=== PATIENT | female | born 1980 | race Caucasian/White ===

== ENCOUNTER 2020-09-24 10:33 | Emergency (ER) | payer OTHER ==
[~2020-09-24] VITALS: Ht 154.9 cm; Wt 59.3 kg
[2020-09-24 12:49] LABS: BASO % 0.3 % (0.0-1.0); EOS # 0.1 10^3/uL (0.0-0.5); EOS % 0.9 % (0.0-3.0); HEMATOCRIT 39.4 % (36.0-47.0); HEMOGLOBIN 12.7 g/dl (12.0-15.5); LYMPH # 1.6 10^3/uL (1.5-5.0); LYMPH % 24.4 % (24.0-44.0); MEAN CORPUSCULAR HEMOGLOBIN 30.5 pg (27.0-33.0); MEAN CORPUSCULAR HGB CONC 32.2 g/dl (32.0-36.5); MEAN CORPUSCULAR VOLUME 94.7 fl (80.0-96.0); MONO # 0.3 10^3/uL (0.0-0.8); MONO % 5.4 % (2.0-8.0); NEUTROPHILS # 4.4 10^3/uL (1.5-8.5); NEUTROPHILS % 68.7 % (36.0-66.0); PLATELET COUNT, AUTOMATED 210 10^3/uL (150-450); RED BLOOD COUNT 4.16 10^6/uL (4.00-5.40); WHITE BLOOD COUNT 6.3 10^3/uL (4.0-10.0)
--- NOTE | 2020-09-24 13:20 | REP ---
INDICATION: nilat pelvic pain, hx of cysts COMPARISON: None. TECHNIQUE: Transabdominal pelvic ultrasound followed by transvaginal examination for better evaluation of the endometrium and adnexa with color Doppler evaluation of the ovaries. FINDINGS: Bladder is unremarkable and measures 6.9 x 4.3 x 2.1 cm. Normal anteverted uterus measures 9.8 x 5.2 x 7.0 cm. The endometrial complex measures 13 mm thickness. No discrete uterine or endometrial abnormalities are appreciated. Bilateral ovaries are normal in vascularity without evidence for torsion. Right ovary measures 5.2 x 2.6 x 3.8 cm and includes 2.6 x 2.6 x 2.0 cm septated likely physiologic cyst; R I = 0.48. Left ovary measures 3.7 x 1.5 x 2.6 cm; R I = 0.40. No pelvic fluid or adnexal mass lesion IMPRESSION: 1. Normal uterus and left ovary. 2. Septated cyst in the right ovary likely physiologic. <Electronically signed by Jm Myers > 09/24/20 [id number]
[2020-09-24 13:27] LABS: ALBUMIN 3.8 GM/DL (3.2-5.2); ALT/SGPT 23 U/L (12-78); BILIRUBIN,DIRECT < 0.1 MG/DL (0.0-0.2); BILIRUBIN,TOTAL 0.5 MG/DL (0.2-1.0); LIPASE 119 U/L (73-393); TOTAL PROTEIN 6.8 GM/DL (6.4-8.2)
[2020-09-24 13:42] VITALS: BP 115/64
== END 2020-09-24 13:43 | disposition home or self-care (01) ==
LOC: M ED 10:33
DX: N83.201 Unspecified ovarian cyst, right side (principal); E05.00 Thyrotoxicosis with diffuse goiter without thyrotoxic crisis or storm

== ENCOUNTER → 2020-10-29 | Outpatient (CLI) | payer OTHER | LOC: M WHC 11:06 | PROVIDERS: ATTEND Obstetrics & Gynecology | DX: N83.201 Unspecified ovarian cyst, right side (principal); Z53.8 Procedure and treatment not carried out for other reasons ==

== ENCOUNTER → 2020-11-12 | Outpatient (CLI) | payer OTHER ==
[2020-11-12 17:19] LABS: BASO % 0.6 % (0.0-1.0); EOS # 0.1 10^3/uL (0.0-0.5); EOS % 1.6 % (0.0-3.0); HEMATOCRIT 37.6 % (36.0-47.0); HEMOGLOBIN 12.2 g/dl (12.0-15.5); LYMPH # 1.9 10^3/uL (1.5-5.0); LYMPH % 38.7 % (24.0-44.0); MEAN CORPUSCULAR HEMOGLOBIN 30.3 pg (27.0-33.0); MEAN CORPUSCULAR HGB CONC 32.4 g/dl (32.0-36.5); MEAN CORPUSCULAR VOLUME 93.5 fl (80.0-96.0); MONO # 0.4 10^3/uL (0.0-0.8); MONO % 7.2 % (2.0-8.0); NEUTROPHILS # 2.5 10^3/uL (1.5-8.5); NEUTROPHILS % 51.7 % (36.0-66.0); PLATELET COUNT, AUTOMATED 239 10^3/uL (150-450); RED BLOOD COUNT 4.02 10^6/uL (4.00-5.40); WHITE BLOOD COUNT 4.9 10^3/uL (4.0-10.0)
[2020-11-12 17:49] LABS: FERRITIN 13 NG/ML (8-252); FREE T4 0.92 NG/DL (0.76-1.46); THYROGLOBULIN ANTIBODY < 15.0 U/ML (<60.0); THYROID STIMULATING HORMONE 0.191 uIU/ML (0.358-3.740)
[2020-11-13 08:28] LABS: THYROID PEROXIDASE ANTIBODY < 28.0 U/ML (<60.0)
== END ==
LOC: M LAB 16:36
PROVIDERS: ATTEND Nurse Practitioner Family
DX: E05.00 Thyrotoxicosis with diffuse goiter without thyrotoxic crisis or storm (principal); Z86.2 Personal history of diseases of the blood and blood-forming organs and certain disorders involving the immune mechanism

== ENCOUNTER → 2020-11-29 | Outpatient (CLI) | payer OTHER ==
--- NOTE | 2020-11-29 11:20 | REP ---
INDICATION: N63.201 R OVARIAN CYST. COMPARISON: 09/24/2020 TECHNIQUE: Transvesical imaging only. The prior exam is also transvesical imaging only. FINDINGS: The uterus is unchanged in size, shape, and echo pattern measuring approximately 8.9 x 6.6 x 4.8 cm. The endometrial echo complex is again seen to be within normal limits with a maximal thickness of 1.2 cm. There is no free fluid in cul-de-sac The right ovary measures 4.4 x 2.3 x 2.8 cm and is within normal limits an RI 0.50 Left ovary measures 4 x 2.7 x 2.7 cm. Within the left ovary there is a 2.4 cm sized anechoic structure which exhibits posterior wall enhancement and increased through transmission consistent with either a small simple cyst or dominant follicle. The left ovarian RI is 0.58. Urinary bladder measures 6 x 2 x 9 cm IMPRESSION: 1. The right ovarian cyst seen previously has resolved. 2. Likely dominant left ovarian follicle as described above. <Electronically signed by Rufino Cramer > 11/29/20 [id number]
== END ==
LOC: M WHC 09:37
PROVIDERS: ATTEND Obstetrics & Gynecology
DX: N83.201 Unspecified ovarian cyst, right side (principal)